=== PATIENT | female | born 1995 | race Caucasian/White ===

== ENCOUNTER 2017-01-09 22:41 | Emergency (ER) | payer MEDICAID ==
[2017-01-09 23:03] VITALS: BP 107/70; PULSE 87; RESP 16; TEMP 98.2; O2SAT 100
--- NOTE | 2017-01-09 23:07 | ED PDOC ---
HPI: CCC, URI, Sore Throat Time Seen by Provider: 01/09/17 23:05 Chief Complaint (Nursing): ENT Problem Chief Complaint (Provider): throat pain History Per: Patient Additional Complaint(s): 21 year old female with no past medical history presents to ED with sore throat for one week with no fever or chills. She is tolerating liquids and solids. She took 1 dose of bactrim that her had left over from a previous infection but this did not help so she came to ED today. Patient took tylenol this morning but this did not help. She is tolerating liquids and solids but has pain when swallowing. Past Medical History Reviewed: Historical Data, Nursing Documentation, Vital Signs Vital Signs: Last Vital Signs Temp 98.2 F 01/09/17 23:02 Pulse 87 01/09/17 23:02 Resp 16 01/09/17 23:02 BP 107/70 01/09/17 23:02 Pulse Ox 100 01/09/17 23:42 - Medical History PMH: No Chronic Diseases - Surgical History Surgical History: No Surg Hx - Family History Family History: States: No Known Family Hx - Living Arrangements Living Arrangements: With Family - Social History Current smoker - smoking cessation education provided: No Alcohol: None Drugs: Denies - Home Medications Home Medications: Ambulatory Orders Medication Instructions Recorded Ranitidine Hydrochloride [Zantac 75 mg PO BID #20 tab 01/04/15 75] Azithromycin [Zithromax] 250 mg PO DAILY #4 tab 01/09/17 Ibuprofen [Motrin] 600 mg PO Q6 PRN #15 tab 01/09/17 - Allergies Allergies/Adverse Reactions: Allergies Allergy/AdvReac Type Severity Reaction Status Date / Time Penicillins Allergy RASH Verified 01/09/17 23:14 Review of Systems ROS Statement: Except As Marked, All Systems Reviewed And Found Negative Constitutional: Negative for: Fever ENT: Positive for: Throat Pain Respiratory: Negative for: Cough Gastrointestinal: Negative for: Nausea, Vomiting Physical Exam - Reviewed Nursing Documentation Reviewed: Yes Vital Signs Reviewed: Yes - Physical Exam Appears: Positive for: Well, Non-toxic, No Acute Distress Skin: Negative for: Rash Eye Exam: Positive for: Normal appearance, EOMI, PERRL ENT: Positive for: TM Is/Are (normal bilaterally), Pharyngeal Erythema, Tonsillar Swelling, Other (airway patent, uvula midline). Negative for: Tonsillar Exudate Neck: Positive for: Painless ROM Cardiovascular/Chest: Positive for: Regular Rate, Rhythm Respiratory: Positive for: Normal Breath Sounds Extremity: Positive for: Normal ROM Neurologic/Psych: Positive for: Alert, Oriented - Laboratory Results Urine POC: Negative - ECG O2 Sat by Pulse Oximetry: 100 Pulse Ox Interpretation: Normal Medical Decision Making Medical Decision Making: Impression: pharyngitis Plan: test Throat culture PO motrin Initial dose of zithromax Rx zithromax and motrin given. Advised fluids, rest and follow up with PMD in 1 -2 days. Disposition - Clinical Impression Clinical Impression: Pharyngitis - Patient ED Disposition Is Patient to be Admitted: No Counseled Patient/Family Regarding: Studies Performed, Diagnosis, Need For Followup, Rx Given - Disposition Referrals: Chase Villarreal MD [Staff Provider] - Disposition: Routine/Home Disposition Time: 23:17 Condition: STABLE Additional Instructions: Take rx meds as directed. Rest and drink plenty of fluids. Follow up with primary care doctor in 2-3 days. Prescriptions: Azithromycin [Zithromax] 250 mg PO DAILY #4 tab Ibuprofen [Motrin] 600 mg PO Q6 PRN #15 tab PRN Reason: Pain, Moderate (4-7) Instructions: Pharyngitis (ED)
== END 2017-01-09 23:39 | disposition home or self-care (01) ==
LOC: H.ER 22:41
DX: J02.9 Acute pharyngitis, unspecified (principal); Z88.0 Allergy status to penicillin